=== PATIENT | female | born 1985 | race Caucasian/White ===

== ENCOUNTER 2017-12-25 13:55 | Emergency (ER) | payer MEDICAID ==
[~2017-12-25] VITALS: Ht 160 cm; Wt 77.1 kg
[2017-12-25 14:01] VITALS: BP_SYST 100
[2017-12-25 14:29] LABS: BILIRUBIN,URINE NEGATIVE (NEGATIVE); CLARITY/URINE CLEAR (CLEAR); COLOR,URINE YELLOW (YELLOW); GLUCOSE,URINE 3+ (NEGATIVE); KETONES,URINE NEGATIVE (NEGATIVE); LEUKOCYTE ESTERASE ,URINE NEGATIVE (NEGATIVE); NITRITE, URINE NEGATIVE (NEGATIVE); PH,URINE 5.5 (5.0-8.0); PROTEIN URINE NEGATIVE (NEGATIVE); UROBILINOGEN,URINE 0.2 (0.2-1.0)
[2017-12-25 14:31] LABS: BLOOD, URINE TRACE (NEGATIVE)
[2017-12-25 14:36] LABS: BACTERIA,URINE RARE /HPF (None Seen); MUCUS,URINE None Seen /LPF (None Seen); RBC,URINE 0-3 /HPF (0-3); WBC,URINE 0-3 /HPF (0-3)
[2017-12-25] MEDS ORDERED: fentaNYL CITRATE/PF 100 MCG/2 ML AMP IVP ONE (15:00)
[2017-12-25] MEDS ORDERED: INSULIN REGULAR, HUMAN 10 UNITS/0.1 ML INJ IVP ONE (15:00)
[2017-12-25] MEDS ORDERED: LIDOCAINE/EPI 2% 1:100000 20 ML VIAL INJ ONE (15:00)
[2017-12-25] MEDS ORDERED: HYDROcodone/ACETAMIN 7.5-325 MG TAB PO ONE (15:00)
[2017-12-25] MEDS ORDERED: NACL 0.9% 1,000 ML IV ONE (15:00)
[2017-12-25] MEDS ORDERED: CEFAZOLIN 1 GM IVPB PREMIX 50 ML IV ONE (15:00)
[2017-12-25 15:27] LABS: BASOPHILS % (AUTO) 0.5 % (0.0-2.0); EOSINOPHILS # (AUTO) 0.4 K/uL (0.0-0.4); EOSINOPHILS % (AUTO) 3.9 % (0.0-4.0); HEMATOCRIT 44.8 % (36-48); HEMOGLOBIN 15.4 g/dL (12.0-16.0); LYMPHOCYTES # (AUTO) 2.8 K/uL (1.0-5.5); LYMPHOCYTES % (AUTO) 28.4 % (20.5-51.5); MEAN CORPUSCULAR HEMOGLOBIN 31 pg (27-31); MEAN CORPUSCULAR HGB CONC 34 % (32-36); MEAN CORPUSCULAR VOLUME 90 fL (79.0-98.0); MONOCYTES # (AUTO) 0.6 K/uL (0.0-1.0); MONOCYTES % (AUTO) 5.8 % (1.7-9.3); NEUTROPHILS # (AUTO) 5.9 K/uL (1.8-7.7); NEUTROPHILS % (AUTO) 61.4 % (40.0-70.0); PLATELET COUNT (AUTO) 256 K/uL (130-430); RED CELL DISTRIBUTION WIDTH 11.2 % (9.0-15.0); WHITE BLOOD COUNT (AUTO) 9.7 K/uL (4.8-10.8)
[2017-12-25 15:29] LABS: CALCIUM 8.7 mg/dL (8.4-11.0); CREATININE 0.88 mg/dL (0.55-1.30)
[2017-12-25 15:37] LABS: ALBUMIN 3.2 g/dL (3.4-4.8); TOTAL BILIRUBIN 0.4 mg/dL (0.0-1.0)
[2017-12-25 17:10] VITALS: BP_SYST 104
== END 2017-12-25 17:10 | disposition home or self-care (01) ==
LOC: SED 13:55
DX: N76.4 Abscess of vulva (principal); E11.9 Type 2 diabetes mellitus without complications
CPT/HCPCS: 36415; 56405; 80053; 81000; 81025; 85025; 87040; 96365; 96375; 99284; J0690; J3010; J7030; J1815

== ENCOUNTER 2017-12-27 13:45 | Emergency (ER) | payer MEDICAID ==
[~2017-12-27] VITALS: Ht 160 cm; Wt 79.4 kg
[2017-12-27 13:50] VITALS: BP_SYST 102
[2017-12-27] MEDS ORDERED: LIDOCAINE 1% 10 MG/ML, 20 ML MDV INJ ONE (14:45)
[2017-12-27 15:15] VITALS: BP_SYST 108
== END 2017-12-27 15:15 | disposition home or self-care (01) ==
LOC: SED 13:45
DX: Z48.01 Encounter for change or removal of surgical wound dressing (principal); E11.9 Type 2 diabetes mellitus without complications
CPT/HCPCS: 99282

== ENCOUNTER 2017-12-29 18:05 | Emergency (ER) | payer MEDICAID ==
[~2017-12-29] VITALS: Ht 160 cm; Wt 77.1 kg
[2017-12-29 18:05] VITALS: BP_SYST 104
[2017-12-29 19:10] VITALS: BP_SYST 110
== END 2017-12-29 19:10 | disposition home or self-care (01) ==
LOC: SED 18:05
DX: Z48.01 Encounter for change or removal of surgical wound dressing (principal); E11.9 Type 2 diabetes mellitus without complications
CPT/HCPCS: 99283